=== PATIENT | female | born 1965 | race Caucasian/White ===

== ENCOUNTER → 2016-09-16 | Outpatient (REF) ==
--- NOTE | 2016-09-17 02:41 | REP ---
Clinical: Pain and disability Technique: AP, lateral, bilateral oblique and sunrise views right knee . Findings: Advanced tricompartmental osteoarthritic degenerative changes are appreciated including osteophytosis, subchondral sclerosis, joint space narrowing and multipartite appearance to the patella which may reflect old trauma. No acute fracture or dislocation. Small suprapatellar effusion cannot be excluded. Impression: Advanced tricompartmental osteoarthritic degenerative changes. Signed by Jesus Doran MD 09/17/2016 02:32 A
--- NOTE | 2016-09-17 03:01 | REP ---
Clinical: Pain and disability. Technique: Neutral and frog lateral views of the left hip. Findings: Early arthritic degenerative changes include joint space narrowing with increase sclerosis and subtle spurring along the acetabular roof. No periarticular calcifications. No acute fracture dislocation. Femoral head and neck appear normal. Impression: Mild arthritic changes. Signed by Jesus Doran MD 09/17/2016 02:52 A
== END ==
LOC: M SMT 13:04
PROVIDERS: ATTEND Internal Medicine
DX: Z02.1 Encounter for pre-employment examination (principal)